=== PATIENT | female | born 1995 | race Caucasian/White ===

== ENCOUNTER 2024-07-30 08:10 | Emergency (ER) | payer OTHER, SELFPAY ==
[2024-07-30 08:23] VITALS: BP 108/76; PULSE 93; RESP 16; TEMP 36.7; O2SAT 100
--- NOTE | 2024-07-30 08:42 | ED_ITS ---
HPI - Ear Problem General Chief complaint: Ear Stated complaint: Ear Pain Time Seen by Provider: 07/30/24 08:42 Source: patient and RN notes reviewed Mode of arrival: ambulatory Limitations: no limitations History of Present Illness HPI Narrative: 28-year-old female presents concern for bilateral ear pressure, worse on the left. She reports that started yesterday. Reports she had some sinus congestion last week that is improved. She denies drainage from the ear or fever. She reports history of problems with her ear as a child. MD Complaint: ear pain Related Data Allergies Allergy/AdvReac Type Severity Reaction Status Date / Time No Known Allergies Allergy Verified 07/30/24 08:29 Review of Systems Review of Systems: CONSTITUTIONAL: Denies malaise, chills, sweats, or fever. EYES: Denies visual changes, redness, or discharge. ENT: Denies rhinorrhea, congestion, sinus pain, and sore throat. Reports bilateral ear pain CARDIOVASCULAR: Denies chest pain, palpitations, or edema. RESPIRATORY: Denies cough. Denies dyspnea. GASTROINTESTINAL: Denies abdominal pain, nausea, vomiting, diarrhea SKIN: Denies rash or itching. MUSCULOSKELETAL: Denies myalgia. NEUROLOGIC: Denies headache. All systems reviewed & are unremarkable except as noted in HPI and below PMFSH Comments At time of signature, agree with nursing past medical, surgical, social and family history. There is no relevant family history pertinent to the presenting complaint Exam Narrative: GENERAL: Well-appearing, well-nourished, and in no acute distress. HEAD: Normocephalic EYES: PERRLA, conjunctivae clear ENT: Nares clear. Mucous membranes moist. TM pearly hernandez with dull light reflex bilaterally; no tragal tenderness. Oropharynx not erythematous without lesions. Tonsils not enlarged and without exudate, no drooling, no hoarseness, no trismus, uvula midline. NECK: Supple. No lymphadenopathy CHEST: Clear to auscultation, breath sounds equal. No wheezing, rhonchi, rales, or stridor. No respiratory distress, speaks in full sentences. HEART: Regular rate and rhythm. No murmur heard. SKIN: Warm, dry, no rash. NEURO: Alert and oriented x3. PSYCH: Normal mood and affect Course Course Emergency Course: Patient is aware of diagnosis, understands and agrees to treatment plan. Anticipatory guidance given. Patient agrees to follow-up as directed and is aware of reasons to seek care at the emergency department. Portions of this record may have been created with voice recognition software Level of Care: [facility] Visit Vital Signs Vital signs: Vital Signs Temperature 98.1 F 07/30/24 08:23 Pulse Rate 93 07/30/24 08:23 Respiratory Rate 16 07/30/24 08:23 Blood Pressure 108/76 07/30/24 08:23 Pulse Oximetry 100 07/30/24 08:23 Temperature 98.1 F 07/30/24 08:23 Pulse Rate 93 07/30/24 08:23 Respiratory Rate 16 07/30/24 08:23 Blood Pressure 108/76 07/30/24 08:23 Pulse Oximetry 100 07/30/24 08:23 Reviewed. Medical Decision Making MDM Narrative Medical decision making narrative: I evaluated this in the [facility]. History is obtained from patient who is an independent historian and physical exam was performed.? Available medical records were reviewed. ? Exam findings and relevant testing show no acute concerns or changes; patient is non-toxic appearing and is in no distress. Differential diagnosis considered: Tellez virus, strep pharyngitis, allergic rhinitis, upper respiratory tract infection, sinusitis, rhinosinusitis, nasopharyngitis. viral pharyngitis, otitis media, otitis externa, otitis effusion, cerumen impaction, foreign body. Exam findings show no acute concerns or changes; patient is non-toxic appearing and is in no distress. Patient is appropriate for outpatient treatment and follow-up. ? Differential diagnosis and treatment plan were discussed with the patient. Patient agrees with discussion and after shared medical decision making agrees with plan of care. All questions were answered to the patient's satisfaction. Patient is appropriate for outpatient treatment and follow-up. Vital Signs Vital Signs: Vital Signs Temperature 98.1 F 07/30/24 08:23 Pulse Rate 93 07/30/24 08:23 Respiratory Rate 16 07/30/24 08:23 Blood Pressure 108/76 07/30/24 08:23 Pulse Oximetry 100 07/30/24 08:23 Temperature 98.1 F 07/30/24 08:23 Pulse Rate 93 07/30/24 08:23 Respiratory Rate 16 07/30/24 08:23 Blood Pressure 108/76 07/30/24 08:23 Pulse Oximetry 100 07/30/24 08:23 Critical Care Time Critical Care Time Critical Care Time: No Discharge Plan Discharge Clinical Impression: Fluid level behind tympanic membrane of both ears Patient Disposition: Home, Self-Care Condition: Stable Instructions: Antibiotic Form, Fluid In The Ear (Serous Otitis Media) (ED) Additional Instructions: Recommend antihistamine such as Benadryl at night time and Zyrtec or [place] during the day until symptoms improve Pseudoephedrine per pack instructions, Flonase nasal spray, 2 sprays in each nostril once daily until symptoms improve Also, recommend symptomatic treatment includes: rest, fluids, and increase humidity of the air at home. Recommend Acetaminophen as directed on the bottle to reduce fever, pain Please schedule a follow-up visit with your personal physician for further evaluation and treatment within 3-5days. If your symptoms persist, change or worsen significantly before you can contact your personal physician then please, without delay, go to the emergency department for further evaluation. Patient Language: Cameroonian Prescriptions: New pseudoephedrine HCl [12 Hour Decongestant] 120 mg tablet extended release 120 mg PO Q12H PRN (Reason: nasal congestion) Qty: 20 0RF fluticasone propionate [Flonase Allergy Relief] 50 mcg/actuation spray,suspension 2 spray NASAL DAILY 14 Days Qty: 15.8 0RF Rx Instructions: administer into each nostril Follow-up/Referrals: PHYSICIAN,ASSISTED LIVING EXECUTIVE DIRECTOR [Primary Care Provider] - Time of Disposition: 08:46
== END 2024-07-30 09:01 | disposition home or self-care (01) ==
PROVIDERS: Emergency Provider Nurse Practitioner
DX: H73.893 Other specified disorders of tympanic membrane, bilateral (principal)
CPT/HCPCS: 99203; G0463